=== PATIENT | male | born 1975 | race Caucasian/White ===

== ENCOUNTER 2018-01-17 13:40 | Emergency (ER) | payer OTHER ==
[~2018-01-17] VITALS: Ht 172.7 cm; Wt 91.6 kg
[~2018-01-17 13:40] MED LIST: COZAAR 25 MG TA25 M1 PO; VYVANSE20 MG PO; ZYVOX600 MG PO
[2018-01-17 13:51] VITALS: BP 170/111
[2018-01-17] MEDS ORDERED: HYDROCHLOROTH12.5 M1 PO (13:54)
== END 2018-01-17 14:51 | disposition home or self-care (01) ==
LOC: M.ERS 13:40
DX: M77.8 Other enthesopathies, not elsewhere classified (principal); I10 Essential (primary) hypertension; Z88.8 Allergy status to other drugs, medicaments and biological substances

== ENCOUNTER 2021-03-26 10:08 | Emergency (ER) | payer OTHER ==
[~2021-03-26] VITALS: Ht 177.8 cm; Wt 69.8 kg
[~2021-03-26 10:08] MED LIST changes: +HYDROCHLOROTH12.5 M1 PO
[2021-03-26] MEDS ORDERED: DOXYCYCLINE 10100 M2 PO (12:32)
[2021-03-26 12:42] VITALS: BP 154/72
== END 2021-03-26 12:43 | disposition home or self-care (01) ==
LOC: M.ERS 10:08
DX: S50.12XA Contusion of left forearm, initial encounter (principal); I10 Essential (primary) hypertension; Z88.8 Allergy status to other drugs, medicaments and biological substances; W22.8XXA Striking against or struck by other objects, initial encounter; Y93.89 Activity, other specified; Y92.89 Other specified places as the place of occurrence of the external cause; Y99.8 Other external cause status

== ENCOUNTER 2021-03-27 08:14 | Inpatient (IN) | payer OTHER ==
[~2021-03-27] VITALS: Ht 172.7 cm; Wt 91.6 kg
[~2021-03-27 08:14] MED LIST changes: +DOXYCYCLINE 10100 M2 PO
[2021-03-27 08:18] VITALS: BP 171/104
[2021-03-27 08:45] LABS: ABSOLUTE EOSINOPHILS 0.2 thou/uL (0.0-0.7); ABSOLUTE LYMPHOCYTES 1.5 thou/uL (0.8-5.3); ABSOLUTE NEUTROPHILS 7.2 thou/uL (1.6-8.1); BASOPHILS 0.4 %; EOSINOPHILS 1.5 %; HEMATOCRIT 44.3 % (42.0-52.0); HEMOGLOBIN 14.9 gm/dL (14.0-18.0); LYMPHOCYTES 15.4 %; MCH 30.2 pg (26.0-34.0); MCHC 33.7 g/dL (28.0-37.0); MCV 89.5 fL (80.0-100.0); MONOCYTES 10.5 %; NUCLEATED RBCS 0 /100WBC; PLATELET COUNT* 274 thou/uL (150-400); POLYS 72.2 %; RBC 4.95 mil/uL (4.50-6.00); RDW-CV 13.4 % (10.5-14.5)
[2021-03-27 09:08] LABS: CALCIUM 8.5 mg/dL (8.5-10.1); POTASSIUM 3.7 mmol/L (3.5-5.1)
[2021-03-27 12:30] VITALS: BP 142/72
[2021-03-27 16:30] VITALS: BP 157/88
[2021-03-27 19:49] VITALS: BP 154/98
--- NOTE | 2021-03-27 19:50 | NUR ---
PATIENT COMPLAINS OF PAIN, PAIN MEDICATION PER THE MAR OFFERED, PATIENT REFUSED. PATIENT REQUESTS MEDICATION TO SLEEP, THIS RN TOLD PATIENT I WOULD CALL THE DR FOR NEW ORDERS. PATIENT STATES HE JUST NEEDS THE LIGHTS OFF AND THE DOOR SHUT. LIGHTS SHUT OFF AND DOOR SHUT PER PATIENT REQUEST. PATIENT STATES NO OTHER NEEDS AT THIS TIME. PATIENTS BED IN THE LOWEST POSITION, CALL LIGHT WITHIN REACH, BEDSIDE TABLE IN REACH. PATIENT EATING [employer] FOR DINNER.
[2021-03-27 22:23] VITALS: BP 162/96
[2021-03-27 22:27] VITALS: BP 162/96
--- NOTE | 2021-03-27 23:19 | NUR ---
ALERT AND ORIENTED X 4 MALE PATIENT TO ROOM 101 BY CART FROM ER IN STABLE CONDITION. UP INDEPENDENTLY FRO TRANSFER INTO BED. LUE ELEVATED ON PILLOW. EDEMA AND PINKNESS NOTED WITH SCATTERED VERY SMALL ABRASIONS. VITAL SIGNS STABLE WITH HYPERTENSION. MILD PAIN LUE AND LOW-GRADE TEMP. DECLINED PRN TYLENOL THAT IS AVAILABLE. ADMISSION ROUTINES IN PROGRESS. IV VANCOMYACIN INFUSING. CONTINUE TO MONITOR.
--- NOTE | 2021-03-28 04:01 | NUR ---
PATIENT HAS REMAINED ALERT AND ORIENTED X 4 THROUGHOUT THE NIGHT AND RESTING QUIETLY ON HOURLY ROUNDS. NO NEW CONCERNS. IVF'S AND ANTIBIOTICS PER ORDER. SOME DISCOMFORT LEFT ARM BUT DID NOT REQUIRE INTERVENTION. PATIENT ENCOURAGED TO KEEP LUE ELEVATED ON PROVIDED PILLOW. CONTINUE TO MONITOR.
[2021-03-28 04:44] VITALS: BP 170/97
[2021-03-28 04:46] LABS: ABSOLUTE BASOPHILS 0.1 thou/uL (0.0-0.2); ABSOLUTE EOSINOPHILS 0.2 thou/uL (0.0-0.7); ABSOLUTE LYMPHOCYTES 1.4 thou/uL (0.8-5.3); ABSOLUTE MONOCYTES 0.8 thou/uL (0.0-1.2); ABSOLUTE NEUTROPHILS 5.7 thou/uL (1.6-8.1); BASOPHILS 0.7 %; EOSINOPHILS 2.3 %; HEMATOCRIT 41.5 % (42.0-52.0); HEMOGLOBIN 14.2 gm/dL (14.0-18.0); LYMPHOCYTES 17.6 %; MCH 30.3 pg (26.0-34.0); MCHC 34.3 g/dL (28.0-37.0); MCV 88.4 fL (80.0-100.0); MONOCYTES 9.3 %; MPV 7.2 fl. (7.2-11.1); NUCLEATED RBCS 0 /100WBC; PLATELET COUNT* 267 thou/uL (150-400); POLYS 70.1 %; RDW-CV 13.2 % (10.5-14.5); WBC 8.1 thou/uL (4.0-11.0)
[2021-03-28 05:00] LABS: CALCIUM 7.9 mg/dL (8.5-10.1); POTASSIUM 3.5 mmol/L (3.5-5.1)
[2021-03-28 07:40] VITALS: BP 148/99
[2021-03-28 16:05] VITALS: BP 169/104
--- NOTE | 2021-03-28 16:45 | NUR ---
CM ASSESSMENT PT RESIDES WITH AND INTENDS TO HAVE HER TRANSPORT HOME UPON DC. PT HAS NO ADL OR DME SUPPORTS. PT HAS NO HX OF HH, SKILLED,OR REHAB SERVICES. PT WITH NO CM NEEDS AT THE MOMENT. CM TO FOLLOWUP.
--- NOTE | 2021-03-28 17:36 | NUR ---
ASSUMED CARE AT 0730. PT IS ALERT AND ORIENTED X4. ASSESSMENT DONE AND CHARTED. LEFT ARM SWOLLENING AND SOME REDDNESS. PAIN AT THE SITE. PAIN MEDICATION GIVEN. WILL CONTINUE TO PROVIDER CARE FOR PATIENT.
[2021-03-28 22:00] VITALS: BP 154/109
[2021-03-29 04:00] VITALS: BP 138/90
[2021-03-29 07:59] VITALS: BP 151/102
[2021-03-29] MEDS ORDERED: NORCO5 PO (10:01)
[2021-03-29] MEDS ORDERED: BACTRIM DS TAB1 EAC1 PO (10:01)
[2021-03-29] MEDS ORDERED: MUPIROCIN1 GM TOP (10:01)
[2021-03-29 12:40] VITALS: BP 151/102
[2021-03-29 15:30] VITALS: BP 151/102
--- NOTE | 2021-03-29 15:47 | NUR ---
Assumed care at 0730. Pt is alert and oriented. Assessment done. Pt is doing much better and will be discharging today. At 1515, Pt was dc'd and pt left with his . Discharge instruction was given. Pt and stated understanding.
--- NOTE | 2021-03-29 17:18 | NUR ---
CM FOLLOWUP PT MEDICALLY CLEAR TO DC WITH CM NEEDS.
== END 2021-03-29 15:28 | disposition home or self-care (01) | DRG 603 ==
LOC: M.ERS 08:14 → M.TBA-ER 08:33 → M.ORTHSURG 22:17
PROVIDERS: Emergency Medicine; ADMIT Internal Medicine; ATTEND Internal Medicine
DX: L03.116 Cellulitis of left lower limb (principal); Z86.14 Personal history of Methicillin resistant Staphylococcus aureus infection; Z88.8 Allergy status to other drugs, medicaments and biological substances; Z79.899 Other long term (current) drug therapy; I10 Essential (primary) hypertension; Z20.822 Contact with and (suspected) exposure to COVID-19